=== PATIENT | female | born 1955 | race Caucasian/White ===

== ENCOUNTER 2019-02-04 20:14 | Emergency (ER) | payer OTHER ==
[~2019-02-04] VITALS: Ht 165.1 cm; Wt 53.5 kg
[2019-02-04 20:28] VITALS: BP 136/60
[2019-02-04] MEDS ORDERED: LIDOcaine 1% 30ml preserv. free vial IJ ONE (23:10)
[2019-02-05] MEDS ORDERED: TRAM50TA2 PO (00:16)
== END 2019-02-05 00:45 | disposition home or self-care (01) ==
LOC: ER 20:16
DX: S92.512A Displaced fracture of proximal phalanx of left lesser toe(s), initial encounter for closed fracture (principal); Z88.0 Allergy status to penicillin; Z79.899 Other long term (current) drug therapy; W22.8XXA Striking against or struck by other objects, initial encounter; Y93.89 Activity, other specified; Y92.89 Other specified places as the place of occurrence of the external cause; Y99.8 Other external cause status
CPT/HCPCS: 28515; 73630; 99284; J2001

== ENCOUNTER 2019-02-25 11:28 | Outpatient (CLI) | payer OTHER ==
[~2019-02-25 11:28] MED LIST: TRAM50TA2 PO
[2019-02-25 11:37] VITALS: BP 132/79
== END 2019-02-25 13:01 | disposition home or self-care (01) ==
LOC: ORTHO 11:28
PROVIDERS: ATTEND Orthopaedic Surgery
DX: S92.512D Displaced fracture of proximal phalanx of left lesser toe(s), subsequent encounter for fracture with routine healing (principal); X58.XXXD Exposure to other specified factors, subsequent encounter
CPT/HCPCS: 73660; G0463

== ENCOUNTER 2019-09-01 09:54 | Outpatient (CLI) | payer OTHER | END 2019-09-01 23:59 | disposition home or self-care (01) | LOC: RT 09:54 | PROVIDERS: ATTEND Family Medicine | DX: K21.9 Gastro-esophageal reflux disease without esophagitis (principal); R06.02 Shortness of breath | CPT/HCPCS: 94010; 94727; 94729 ==

== ENCOUNTER 2023-06-25 06:41 | Day surgery (SDC) | payer OTHER ==
[2023-06-16 14:06] LABS: BASOPHILS # (AUTO) 0.1 X10'3 (0-0.2); BASOPHILS % (AUTO) 0.6 % (0-1); EOSINOPHILS # (AUTO) 0.1 X10'3 (0-0.9); EOSINOPHILS % (AUTO) 1.6 % (0-6); LYMPHOCYTES # (AUTO) 2.2 X10'3 (1.1-4.8); LYMPHOCYTES % (AUTO) 24.9 % (21-51); MEAN CORPUSCULAR HEMOGLOBIN 29.6 PG (27.0-31.0); MEAN CORPUSCULAR HGB CONC 33.2 g/dL (33.0-36.5); MEAN CORPUSCULAR VOLUME 89.1 FL (78-98); MEAN PLATELET VOLUME 8.6 FL (7.4-10.4); MONOCYTES # (AUTO) 0.7 X10'3 (0-0.9); MONOCYTES % (AUTO) 7.3 % (2-12); NEUTROPHILS # (AUTO) 5.9 X10'3 (1.8-7.7); NEUTROPHILS % (AUTO) 65.6 % (42-75); PRE OP HEMATOCRIT 40.6 % (35.0-45.0); PRE OP HEMOGLOBIN 13.5 g/dL (12.0-16.0); PRE OP PLATELET COUNT 256 X10'3 (140-440); RED BLOOD COUNT 4.56 X10'6 (4.20-5.60); RED CELL DISTRIBUTION WIDTH 12.8 % (11.5-14.5)
[2023-06-16 14:19] LABS: ALBUMIN 3.7 G/DL (3.4-5.0); ALKALINE PHOSPHATASE 81 IU/L (46-116); BLOOD UREA NITROGEN 13 MG/DL (7-18); BUN/CREATININE RATIO 15.5 (10.0-20.0); CHLORIDE 103 MMOL/L (99-107); CREATININE 0.84 MG/DL (0.40-0.90); PRE OP ALT 17 U/L (30-65); PRE OP ANION GAP 7 (8-16); PRE OP AST 21 U/L (10-37); PRE OP BILIRUB, TOTAL 0.5 MG/DL (0.0-1.0); PRE OP GLUCOSE 183 MG/DL (70-104); PRE OP POTASSIUM 3.9 MMOL/L (3.4-5.1); PRE OP SODIUM 139 MMOL/L (135-145); TOTAL CARBON DIOXIDE 29.5 MMOL/L (24-32); TOTAL PROTEIN 7.3 G/DL (6.4-8.2); eGFR 67 ML/MIN
[2023-06-25] VITALS (8 sets, daily range): BP systolic 104–128; BP diastolic 55–68; PULSE 55–70; RESP 14–17; TEMP 97.6; O2SAT 96–98
[~2023-06-25] VITALS: Ht 165.1 cm; Wt 62.5 kg
[~2023-06-25 06:41] MED LIST changes: +CALC600T14 PO; +MULT-1085 PO; -TRAM50TA2 PO; +cefazolin 2gm/D5W 100mL 100 ML IV ONE; +famotidine 20mg tablet PO ONE; +ringers solution, lacted 1,000 ML IV SCH
[2023-06-25] MEDS ORDERED: TETRACAINE 0.5% 4 ML OPHTHALMIC DROPS ONE (07:04)
[2023-06-25] MEDS ORDERED: polyvinyl alcohol ophthalmic drops 15ml bottle ONE (07:04)
[2023-06-25] MEDS ORDERED: LIDOCAINE 1%/EPI 1:100,000 inj. 10 ML multi-dose vial ONE (07:04)
[2023-06-25] MEDS ORDERED: fentaNYL/PF 50MCG/1 ML 2ML syringe ONE (08:20)
[2023-06-25] MEDS ORDERED: morphine 4 MG/ML inj SYRINge IV PRN (08:25)
[2023-06-25] MEDS ORDERED: morphine 2 MG/ML inj. syringe IV PRN (08:25)
[2023-06-25] MEDS ORDERED: labetalol 20mg/4ml (5mg/ml) syringe IV PRN (08:25)
[2023-06-25] MEDS ORDERED: ondansetron/PF 4mg/2ml inj IV PRN (08:25)
[2023-06-25] MEDS ORDERED: ringers solution, lacted 1,000 ML IV SCH (08:25)
[2023-06-25] MEDS ORDERED: LIDOcaine 2% (20mg/ml) 5ml vial ONE (08:34)
[2023-06-25] MEDS ORDERED: propofol inj 20 ML IV ONE (08:34)
[2023-06-25] MEDS ORDERED: TETRACAINE 0.5% 4 ML OPHTHALMIC DROPS EACHEYE ONE (09:07)
[2023-06-25] MEDS ORDERED: LIDOCAINE 1%/EPI 1:100,000 inj. 10 ML multi-dose vial IJ ONE (09:09)
== END 2023-06-25 10:03 | disposition home or self-care (01) ==
LOC: PAS 06:41
PROVIDERS: ATTEND Specialist
DX: H02.831 Dermatochalasis of right upper eyelid (principal); H02.834 Dermatochalasis of left upper eyelid; Z88.0 Allergy status to penicillin; Z72.89 Other problems related to lifestyle; Z79.899 Other long term (current) drug therapy
CPT/HCPCS: 15823; 36415; 80053; 82948; 85025; A6402; J0690; J2704; J3010; J3490; J7030; J7120; Z7506; Z7512; A4215; A4618; A6410; A6449; A7000

== ENCOUNTER 2024-02-29 09:48 | Emergency (ER) | payer OTHER ==
[~2024-02-29] VITALS: Ht 165.1 cm; Wt 59.0 kg
[~2024-02-29 09:48] MED LIST changes: -cefazolin 2gm/D5W 100mL 100 ML IV ONE; -famotidine 20mg tablet PO ONE; -ringers solution, lacted 1,000 ML IV SCH
[2024-02-29 09:59] VITALS: BP 132/56; PULSE 75; TEMP 98.2; O2SAT 98
[2024-02-29] MEDS ORDERED: NAPR-56 PO (11:16)
[2024-02-29] MEDS: naproxen 500mg tablet PO ONE (11:21)
[2024-02-29 11:25] VITALS: RESP 18
== END 2024-02-29 11:28 | disposition home or self-care (01) ==
LOC: ER 09:49
DX: S96.811A Strain of other specified muscles and tendons at ankle and foot level, right foot, initial encounter (principal); Z88.0 Allergy status to penicillin; Z79.899 Other long term (current) drug therapy; X58.XXXA Exposure to other specified factors, initial encounter; Y93.89 Activity, other specified; Y92.89 Other specified places as the place of occurrence of the external cause; Y99.8 Other external cause status
CPT/HCPCS: 73610; 99283; A6449